=== PATIENT | male | born 1940 | race Caucasian/White ===

== ENCOUNTER 2016-07-15 09:40 | Day surgery (SDC) | payer MEDICARE, OTHER ==
[~2016-07-15] VITALS: Ht 177.8 cm; Wt 105.0 kg
[~2016-07-15 09:40] MED LIST: ALLOPURINOL300 MG PO; ASPIRIN EC81 MG PO; BELVIQ10 MG PO; CARVEDILOL25 MG PO; CITRATE OF MAG296 ML PO; CO Q-10300 MG PO; DULCOLAX-DPS5 MG PO; FEOSOL-DPS325 MG PO; GLUCOPHAGE1000 MG PO; LANTUS SOL100 UNIT/1 SQ; LASIX DPS20 MG PO; LIPITOR DPS20 MG PO; MILK OF MAGNESI10 ML PO; MIRALAX DPS17 GM PO; NOVOLOG FL100 UNIT/1 SQ; NOVOLOG100 UNIT/2 SQ; OMEGA-3 DPS1000 MG PO; SYNTHROID DP0.125 MG PO; TYLENOL EXTRA500 M1 PO; VITAMIN B-12500 MCG PO; XARELTO20 MG PO; ZESTRIL DPS10 MG PO
--- NOTE | 2016-08-01 08:33 | OR ---
ADMIT: 07/15/2016 RM/LOC: [facility] MR#: [id number] [address] [address] [address] [place] [address] Operative/Delivery Room Report SEX: M AGE: 75 : 1940 SURGERY DATE: 07/15/2016 SURGEON: Meek Wyman MD PREOPERATIVE DIAGNOSIS: History of transitional cell carcinoma with recent positive cytology, unremarkable cystoscopy in office. 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 PROCEDURE: Cystoscopy with random bladder biopsy. ANESTHESIA: General. INDICATIONS: The patient is a pleasant white male with history of transitional cell carcinoma. Recent office cystoscopy demonstrated no evidence of significant erythematous lesion or papillary recurrence within the bladder. Multiple biopsy sites were noted without any obvious local recurrence, however, cytology was suspicious for urothelial carcinoma. I did recommend to the patient that we consider a random bladder biopsy secondary to his history of carcinoma in situ. The patient did consent. He was cleared by Cardiology and he has been off his Xarelto since the 09 of July. The patient signed informed consent. Preoperative antibiotics given. PROCEDURE IN DETAIL: Patient taken was taken to OR #5, placed on the table in supine position. After adequate anesthesia, transferred to dorsal lithotomy position, prepped and draped in the usual fashion. The scope was introduced, urethra was unremarkable. No stricture or diverticulum. Prostate was not obstructing. Upon entering the bladder, the ureteral orifice visualized in all normal positions. Along the floor of the bladder, there was absolutely no change whatsoever. The bladder mucosa was absolutely normal. As we move onto the posterior wall of the bladder, there was some hypervascularity, but no true mucosal change, this will be where we focused our biopsies. The dome of the bladder was clear of any lesions. No significant lesions involving the right lateral bladder wall. Only this hypervascularity is noted along the left lateral wall, started near the dome and then extending sort of a low across the posterior bladder wall and there previous biopsy site. We did place a cold cup biopsy forceps and biopsies x3 were taken from the left lateral aspect of the bladder. The left posterior bladder wall and the right posterior bladder wall near previous biopsy sites were sent as separate specimens marked appropriately. We then used a Bugbee electrode to obtain meticulous hemostasis and the surrounding normal-appearing mucosa was then likewise fulgurated. Once I was satisfied with the hemostasis, the bladder was decompressed, filled to partial capacity and all biopsy sites were ADMIT: 07/15/2016 RM/LOC: [facility] MR#: [id number] [address] [place] [phone] MIGUEL A RAFY Gabriela [address] [place] [address] Operative/Delivery Room Report SEX: M AGE: 75 : 1940 observed for a period of time and there was no evidence of bleeding. Nothing else that I could see that required biopsy. I went ahead and drained the bladder, removed the scope. The patient was taken out of dorsal lithotomy position, extubated uneventfully, and transferred to recovery room in stable condition. DISPOSITION: The patient will be discharged home later on today. Discharge medications include Cipro 500 mg 1 p.o. b.i.d. for the next 3 days. Follow up the patient back next week for followup of the biopsy results. He is instructed to restart his Xarelto on the , however, if he is having continued issues with hematuria or he develops hematuria after Xarelto was initiated, he is to hold the medication and notify the office. Meek Wyman MD/ yury JOB #: [id number] CC: Meek Wyman MD, Attending Physician Geronimo Dukes MD, Family Physician
== END 2016-07-15 15:40 | disposition home or self-care (01) ==
LOC: SSS 09:40
PROC: 0TBB8ZX Excision of Bladder, Via Natural or Artificial Opening Endoscopic, Diagnostic (ICD-10-PCS; principal; 2016-07-15)
DX: D09.0 Carcinoma in situ of bladder (principal); N30.20 Other chronic cystitis without hematuria; I25.2 Old myocardial infarction; I11.0 Hypertensive heart disease with heart failure; I50.9 Heart failure, unspecified; Z95.1 Presence of aortocoronary bypass graft; E66.9 Obesity, unspecified; E11.9 Type 2 diabetes mellitus without complications; M10.9 Gout, unspecified; E07.9 Disorder of thyroid, unspecified; Z98.890 Other specified postprocedural states; Z79.899 Other long term (current) drug therapy; Z88.8 Allergy status to other drugs, medicaments and biological substances

== ENCOUNTER 2016-07-16 06:29 | Day surgery (SDC) | payer MEDICARE, OTHER ==
--- NOTE | ~2016-07-16 | HP ---
ADMIT: 07/16/2016 RM/LOC: [facility] MR#: [id number] [address] [id number] RAFY GRADY [address] [place] [id number] History and Physical SEX: M AGE: 75 : 1940 DATE OF SERVICE: 07/16/2016 CHIEF COMPLAINT: Gross hematuria, clot retention after bladder biopsy. HISTORY OF PRESENT ILLNESS: The patient is a pleasant patient, who is well- known to me. Underwent cystoscopy with bladder biopsy uneventfully yesterday here at the hospital. He was discharged home voiding spontaneously. Last night, he noted onset of gross hematuria about 2:00 a.m., passed some clots and now then is unable to void. He presents with some distress. There is some suprapubic pain and pressure. He has had no fevers or chills. He has been on Xarelto previously; however, this was held as of 07/09/2016. This was not restarted after surgery. The patient denies any fever. There has been no nausea or vomiting, just very uncomfortable as he has to go to the bathroom. Past medical history through review of systems is unchanged. PHYSICAL EXAMINATION: GENERAL: The patient is uncomfortable when he has to pee. VITAL SIGNS: Stable. HEART: Regular. CHEST: Clear. ABDOMEN: Soft with some suprapubic tenderness secondary to distended bladder. : The patient's glans and shaft without plaques or lesions. Testes descended bilaterally without mass or tenderness. EXTREMITIES: No cyanosis, clubbing, or edema. LABORATORY DATA: CBC drawn and pending. Given the patient's distress, we will proceed to the operating room and follow up on results after operation is complete. ASSESSMENT: Clot retention, gross hematuria after bladder biopsy. PLAN: I have recommended we proceed to the operating room for diagnostic cystoscopy, clot evacuation, and fulguration of biopsy sites. Most likely, we will have the catheter postoperatively. Of course, we will have to continue to hold his Xarelto. The patient has been counseled on the risks, benefits, and complications of anesthesia, bleeding, infection, potential recurrent bleeding. The patient has been counseled on Goodman catheter management. In the event bladder perforation were to occur, open repair would be required, this is unlikely. Meek Wyman MD/ yury JOB #: [id number] CC: Meek Wyman MD, Attending Physician Meek Wyman MD, Family Physician
--- NOTE | 2016-07-19 13:14 | ER ---
ADMIT: 07/16/2016 RM/LOC: [facility] MR#: [id number] [address] [address] [address]ADY [address] [place] [id number] Emergency Room Report SEX: M AGE: 75 : 1940 DATE: 07/16/2016 HISTORY OF PRESENT ILLNESS: The patient is a 75-year-old male, with a past medical history of AFib and VFib, status post bypass graft and pacemaker defibrillator placement and history of bladder cancer, who came to the ER with chief complaint of urinary retention, gross hematuria since last night and feeling pressure in the suprapubic area. The patient states yesterday, he had biopsy of the bladder after which he noticed the gross hematuria and he was not able to pee and just urinated a few drops and before that he has gross hematuria. PHYSICAL EXAMINATION: VITAL SIGNS: The patient had stable vitals in the ER. GENERAL: In no obvious distress. HEAD and NECK: Noncontributory. CHEST: Clear bilaterally. ABDOMEN: Mildly distended, and the suprapubic area has mild tenderness without any rebound. GENITOURINARY: There is a drop of blood, which is right at the penile meatus. Testicles are normal grossly. SKIN: I did not see any bruises on the skin. The rest of genital exam and rest of physical exam is noncontributory. The patient was admitted by Urology to the operation room for gross hematuria, urinary retention, postprocedural bleeding, for further followups and treatments. Evan Berg MD/ yury JOB #: [id number] CC: Meek Wyman MD, Attending Physician Meek Wyman MD, Family Physician
--- NOTE | 2016-08-01 08:33 | OR ---
ADMIT: 07/16/2016 RM/LOC: [facility] MR#: [id number] [address] [address] [address]Y [address] [place] [address] Operative/Delivery Room Report SEX: M AGE: 75 : 1940 SURGERY DATE: 07/16/2016 SURGEON: Meek Wyman MD PREOPERATIVE DIAGNOSIS: Gross hematuria with clot retention after bladder biopsy. POSTOPERATIVE DIAGNOSIS: Gross hematuria with clot retention after bladder biopsy. PROCEDURE: Cystoscopy with clot evacuation and fulguration of all biopsy sites. ANESTHESIA: General. INDICATIONS: The patient is a pleasant white male, who underwent cystoscopy and bladder biopsy yesterday. He presents with gross hematuria and clot retention. Secondary to patient distress, I have decided to go back to the operating room, so I can evaluate biopsy sites and fulgurated any potential bleeding sites. The patient has signed informed consent Levaquin given. PROCEDURE IN DETAIL: The patient was taken to OR #5, placed on the table in supine position. After adequate anesthesia, transferred to dorsal lithotomy position, prepped and draped in the usual fashion. A time-out was taken confirming patient name, date of , planned procedure, preoperative antibiotics and allergies. The urethral meatus was calibrated 28-Grenadian with Leila sounds. A 26- Grenadian resectoscope sheath, visual obturator, and 12 degree lens advanced to the level of bladder. Clot was noted within the base of the bladder. The scope was broken. Storz evacuator was used to obtain all clot from the bladder lumen. This went very nicely. The ureteral orifice 30 degree lens and a monopolar rollerball electrode was then placed. The ureteral orifices inspected. There was no evidence of bloody efflux here. There was no evidence of bleeding at the bladder neck. All biopsy sites were inspected. No active bleeding at the present time. There was some hyperemia surrounding each biopsy site, which would be expected. I did use coagulating current only and each biopsy site was thoroughly fulgurated especially the ADMIT: 07/16/2016 RM/LOC: [facility] MR#: [id number] 2620 [facility] [address] [place] [phone] [address] [place] [address] Operative/Delivery Room Report SEX: M AGE: 75 : 1940 base of the biopsy site and surrounding hyperemic tissue. At this point, we had excellent hemostasis. We did watch for several moments and no further bleeding was noted. At this point, the scope was withdrawn. I decided to place a 20-Grenadian 2-way Goodman catheter for bladder decompression for couple of days just to not put any stress on these biopsy sites. Catheter was left to gravity drainage suppository was placed per my request. The patient taken to dorsal lithotomy position, extubated uneventfully and transferred to recovery room in stable condition. He will be discharged home later on today with continuation of oral antibiotic therapy. I did write him a prescription for some Lortab. We will see him back on for recheck and hopefully get the catheter out. We should have pathology results back by then. Meek Wyman MD/ yury JOB #: [id number] CC: Meek Wyman MD, Attending Physician Meek Wyman MD, Family Physician
== END 2016-07-16 13:45 | disposition home or self-care (01) ==
LOC: ER 06:29 → SSS 06:40
DX: N32.89 Other specified disorders of bladder (principal); R31.0 Gross hematuria; I25.2 Old myocardial infarction; I10 Essential (primary) hypertension; M10.9 Gout, unspecified; E11.9 Type 2 diabetes mellitus without complications; E07.9 Disorder of thyroid, unspecified; Z95.1 Presence of aortocoronary bypass graft; Z95.0 Presence of cardiac pacemaker; Z88.6 Allergy status to analgesic agent; Z88.8 Allergy status to other drugs, medicaments and biological substances; Z79.899 Other long term (current) drug therapy